=== PATIENT | male | born 1985 | race African-American/Black ===

== ENCOUNTER 2018-12-15 14:12 | Emergency (ER) | payer MEDICAID, OTHER ==
[~2018-12-15] VITALS: Ht 188 cm; Wt 77.0 kg
[2018-12-15] MEDS ORDERED: KETOROLAC 60MG/2ML VIAL IM ONE (15:15)
[2018-12-15] MEDS ORDERED: HYDROCODONE/ACETAMINOPHEN 5/325MG TABLET PO ONE (15:15)
[2018-12-15 15:32] VITALS: BP 122/73
== END 2018-12-15 15:21 | disposition home or self-care (01) ==
LOC: ER 14:23
DX: K04.7 Periapical abscess without sinus (principal); R68.84 Jaw pain; R03.0 Elevated blood-pressure reading, without diagnosis of hypertension; F17.200 Nicotine dependence, unspecified, uncomplicated; Z71.6 Tobacco abuse counseling; Z98.890 Other specified postprocedural states
CPT/HCPCS: 96372; 99283; 99406; J1885

== ENCOUNTER 2023-01-07 06:57 | Emergency (ER) | payer MEDICAID ==
[~2023-01-07] VITALS: Ht 188 cm; Wt 77.0 kg
[~2023-01-07 06:57] MED LIST: AMOX1TAB16 PO
[2023-01-07 07:07] VITALS: BP 127/88
[2023-01-07] MEDS ORDERED: KETOROLAC 15MG/ML VIAL IM ONE (08:45)
[2023-01-07] MEDS ORDERED: NAPR500T7 MT (10:02)
== END 2023-01-07 10:55 | disposition home or self-care (01) ==
LOC: ER 06:57
DX: M25.562 Pain in left knee (principal); F12.10 Cannabis abuse, uncomplicated; Z98.890 Other specified postprocedural states
CPT/HCPCS: 73562; 96372; 99283; J1885; Z7610

== ENCOUNTER 2023-07-20 02:04 | Emergency (ER) | payer MEDICAID, OTHER ==
[~2023-07-20] VITALS: Ht 188 cm; Wt 79.0 kg
[~2023-07-20 02:04] MED LIST changes: +NAPR500T7 MT
[2023-07-20 02:16] VITALS: O2SAT 100
[2023-07-20] MEDS ORDERED: KETOROLAC 15MG/ML VIAL IM ONE (02:30)
[2023-07-20] MEDS ORDERED: KETOROLAC 15MG/ML VIAL IM NR (07:00)
[2023-07-20 07:35] LABS: HEMATOCRIT 39.4 % (42.0-52.0); HEMOGLOBIN 12.9 g/dL (14.0-18.0); MEAN CORPUSCULAR HEMOGLOBIN 29.4 pg (28.0-32.0); MEAN CORPUSCULAR HGB CONC 32.8 g/dL (31.0-37.0); MEAN CORPUSCULAR VOLUME 89.7 fL (80.0-94.0); PLATELET 202 x1000/uL (130-400); RED BLOOD CELL COUNT 4.39 mill/uL (4.7-6.1); RED CELL DISTRIBUTION WIDTH 13.6 % (11.6-14.6)
[2023-07-20 08:09] LABS: CHLORIDE 105 mEq/L (98-107); INDEX HEMOLYSI 1 (1-3); INDEX ICTERIC 1 (1-4); INDEX LIPEMIC 1 (1-3); POTASSIUM 3.9 mEq/L (3.5-5.1); SODIUM 137 mEq/L (136-145)
[2023-07-20 08:21] LABS: ALANINE AMINOTRANSFERASE 42 IU/L (13-61); ALBUMIN 3.5 g/dL (3.4-5.0); ASPARTATE AMINOTRANSFERASE 22 IU/L (15-37); BILIRUBIN TOTAL 0.7 mg/dL (0.1-1.0); CALCIUM 9.1 mg/dL (8.5-10.1); CARBON DIOXIDE 27 mEq/L (21-32); CREATINE KINASE 42 IU/L (39-308); CREATININE 0.6 mg/dL (0.6-1.3); GLUCOSE 119 mg/dL (70-105); PROTEIN TOTAL 7.2 g/dL (6.0-8.3); UREA NITROGEN BLOOD 7 mg/dL (7-21)
[2023-07-20 09:21] VITALS: BP 132/77; PULSE 73; RESP 18; TEMP 98.9
== END 2023-07-20 09:22 | disposition home or self-care (01) ==
LOC: ER 02:04
DX: M79.651 Pain in right thigh (principal); R60.0 Localized edema; F12.10 Cannabis abuse, uncomplicated
CPT/HCPCS: 80053; 82550; 85027; 36415; 93971; 73552; 99285; J1885; Z7610